=== PATIENT | male | born 1965 | race Caucasian/White ===

== ENCOUNTER 2016-09-29 18:36 | Emergency (ER) | payer OTHER ==
[2016-09-29 19:22] LABS: BASOPHIL# 0.1 X10e3 (0-0.3); BASOPHIL% 0.9 % (0-2.5); EOSINOPHIL# 0.2 X10e3 (0-0.7); EOSINOPHIL% 1.3 % (0.0-7.0); HEMATOCRIT 46.7 % (38.0-50.0); HEMOGLOBIN 15.1 gm/dL (13.0-16.0); LYMPHOCYTE# 2.5 X10e3 (1.0-3.5); LYMPHOCYTE% 20.7 % (17.0-45.0); MEAN CELL VOLUME 90.1 FL (83-96); MEAN CORPUSCULAR HEMOGLOBIN 29.2 PG (28-34); MEAN CORPUSCULAR HGB CONC 32.5 g/dL (30-36); MEAN PLATELET VOLUME 8.2 FL (6.5-11.5); MONOCYTE# 0.7 X10e3 (0-1.0); MONOCYTE% 6.1 % (3.0-12.0); NEUTROPHIL# 8.5 X10e3 (1.5-7.1); PLATELET COUNT 277 X10e3 (140-420); RED BLOOD COUNT 5.18 X10e (3.90-5.60); RED CELL DISTRIBUTION WIDTH 13.1 % (11.0-15.5); WHITE BLOOD COUNT 11.9 X10e3 (4.0-10.5)
[2016-09-29 19:25] LABS: DIFF IND NO
[2016-09-29 19:45] LABS: POC - CKMB 1.6 ng/mL (0.0-7.9); POC - TROPONIN <0.05 ng/mL (<=0.05)
[2016-09-29 20:04] LABS: ALBUMIN SERUM 3.8 g/dL (3.5-5.0); ALKALINE PHOSPHATASE 62 U/L (32-92); ALT (SGPT) 26 U/L (10-40); AST (SGOT) 23 U/L (10-42); BILIRUBIN,TOTAL 0.9 mg/dL (0.2-2.0); BLOOD UREA NITROGEN 14 mg/dL (9-23); CALCIUM SERUM 8.6 mg/dL (8.4-10.2); CARBON DIOXIDE 26 mmol/L (22-31); CHLORIDE 106 mmol/L (100-111); GLOM FILT RATE Estimated 87.4 mL/min (>60); GLUCOSE FASTING 141 mg/dL (70-110); POTASSIUM 3.5 mmol/L (3.5-5.1); PROTEIN TOTAL SERUM 7.3 g/dL (6.0-8.3); SALICYLATE <4.0 mg/dL; SODIUM 140 mmol/L (135-145)
[2016-09-29 20:05] LABS: ACETAMINOPHEN <10 ug/mL; ALCOHOL BLOOD <5 mg/dL (0)
== END 2016-09-29 22:45 | disposition home or self-care (01) ==
LOC: CED 18:36
PROVIDERS: Emergency Medicine
DX: F12.10 Cannabis abuse, uncomplicated (principal); F15.10 Other stimulant abuse, uncomplicated
CPT/HCPCS: 36415; 80053; 82553; 84484; 85025; 96360; 99284; G0480